=== PATIENT | female | born 1950 | race Caucasian/White ===

== ENCOUNTER 2018-08-08 17:13 | Observation (INO) ==
--- NOTE | 2018-08-08 17:37 | ERNOTE ---
Medical Problem HPI - Narrative Date of Service: 08/08/18 - General Chief Complaint: General Assessment Time Seen by Provider: 08/08/18 17:27 Source: patient, RN notes reviewed Exam Limitations: no limitations - Immun/Allergies/Home Medications Immunizations: IMMUNIZATION HX Immunizations Up to Date No History of Influenza Vaccine No Hx Pneumococcal Vaccination No Allergies/Adverse Reactions: Allergies amoxicillin Allergy (Verified 08/08/18 17:25) Home Medications: HOME MEDICATIONS NK 08/08/18 [Last Taken Unknown] - History of Present History Narrative: Baylee is a 68 year old female who presents to the ED from home with her for anemia. She has been feeling increasingly more tired since she retired 6 months ago. She had not seen a doctor since 2013. She established with a new PCP earlier today. Her had been urging her to do this since she had not been feeling well. She was notified later this afternoon that she needed to go to the ER because her hemoglobin was only 6.2. She reports becoming fatigued with minimal exertion, and that her legs start hurting from walking up her stairs. She denies any chest pain. She denies any obvious bleeding. She has never had a colonoscopy. She is a pack and a half per day smoker. Timing: getting worse Review of Systems - Review of Systems Constitutional: Present: fatigue. Absent: recent illness, fever, chills EYE: Present: blurred vision - intermittent. Absent: eye pain ENT: Present: no symptoms reported Respiratory: Present: shortness of breath - mild, exertional. Absent: cough Cardiology: Absent: chest pain, palpitations, syncope Gastrointestinal/Abdominal: Absent: diarrhea, constipation, abdominal pain, eating less, drinking less Genitourinary: Absent: dysuria, hematuria Musculoskeletal: Present: muscle pain. Absent: joint pain, joint swelling Skin: Absent: rash, lesions, lumps Neurological: Absent: headache, dizziness/light-headedness Endocrine: Present: no symptoms reported Hematologic/Lymphatic: Absent: easy bruising, easy bleeding Psych: Present: no symptoms reported Medical History (Last Reviewed 08/08/18 @ 18:35 by Denisse Mcclellan NP) Hx of wisdom tooth extraction (Acute) No pertinent past medical history lymph node removal cervical lymph node removed in the Surgical History: Surgical History (Last Updated 08/08/18 @ 18:54 by Vianca Andre RN) lymph node removal (Acute) cervical lymph node removed in the 70's Hx of wisdom tooth extraction (Acute) Family History: Family History (Last Reviewed 08/08/18 @ 18:35 by Denisse Mcclellan NP) Sister Bipolar 1 disorder Mother Fibromyalgia Social History: Preferred Language [place] Do you have any anabaptist or Yes: episcapalion cultural preference? Smoking Status Current every day smoker Have you smoked in the past 12 Yes months Do you dip or chew tobacco No Alcohol Use occasionally Drug Use none No Social History Section defined Physical Exam - Physical Exam General Appearance: Present: alert, no apparent distress, thin Head Exam: Present: normal inspection Eye Exam: Normal inspection: bilateral Neck: Present: normal inspection, nontender, supple, full range of motion Respiratory: Present: no respiratory distress, no accessory muscle use, lungs clear, decreased breath sounds - bilateral bases Cardiovascular/Chest: Present: no murmur, normal peripheral pulses, tachycardia Gastrointestinal/Abdominal: Present: normal bowel sounds, nontender, nondistended, soft Rectal Exam: Present: nontender, normal rectal tone, heme negative stool Extremity Exam: Present: normal inspection, normal range of motion, no edema Neurological Exam: Present: alert, oriented, normal mood/affect, no motor/sensory deficits Skin Exam: Present: warm/dry, pallor Progress - Results and Orders Patient's Lab Results:: I have reviewed the patient's lab results. - Vital Signs Patient's Vital Signs:: I have reviewed the patient's vital signs. Vital Signs: Vital Signs 08/08/18 17:14 Temperature 36.4 C Pulse Rate 110 H Respiratory Rate 14 Blood Pressure 183/98 H O2 Sat by Pulse Oximetry 100 - Progress/Reassessment Chief Complaint: General Assessment Progress:: Unchanged Plan - Plan Plan: The patient is severely anemic with a hemoglobin of 5.7 without any identifiable cause at the present time. Two units of blood have been ordered. Dr. Guaman was contacted and the patient will be admitted to observation. Departure Clinical Impression: Anemia Qualifiers: Anemia type: unspecified type Qualified Code(s): D64.9 - Anemia, unspecified - Departure Disposition: Still a patient Condition: Stable
[2018-08-08 17:59] LABS: Mean Cell Volume 61.4 fl (78-100); Mean Corpuscular Hemoglobin 16.7 pg (27-31); Mean Corpuscular Hgb Conc 27.1 g/dl (32-36); Neutrophil # 3.6 K/mm3 (1.3-6.0); Neutrophil % 55.7 % (42-75.0); Platelet Count 453 K/mm3 (150-450); Red Blood Count 3.42 M/mm3 (4.2-5.4); Red Cell Distribution Width 18.9 % (11.5-14.0); White Blood Count 6.4 K/mm3 (4.0-10.5)
[2018-08-08 18:03] LABS: Hemoglobin 5.7 gm/dL (12.5-16.0)
[2018-08-08 18:12] LABS: Prothrombin Time (Patient) 9.9 Seconds (9.0-11.0)
[2018-08-08 18:15] LABS: Albumin * 3.7 gm/dl (3.4-5.0); Anion Gap 16.8 mmol/L (6.8-13.8); BUN/Creatinine Ratio 19.2 (9.0-21.6); Bilirubin, Total 0.2 mg/dL (0.0-1.1); Ca. Corrected For Albumin 9.1 mg/dL (8.4-10.2); Calcium * 9.2 mg/dL (7.9-10.9); Carbon Dioxide 23.1 mmol/L (24-32.6); Potassium 3.9 mmol/L (3.4-4.6); Total Protein 7.5 gm/dL (6.2-8.2)
[2018-08-08 18:16] LABS: INR 0.99 INR (0.90-1.10); Partial Thrombolplastin Time 21.3 Seconds (24-32)
[2018-08-08 18:32] LABS: Urine Bilirubin Negative (NEGATIVE); Urine Blood Negative /ul (NEGATIVE); Urine Ketone Negative (NEGATIVE); Urine Nitrite Negative (NEGATIVE); Urine Protein Negative (NEGATIVE); Urine Urobilinogen Normal (NORMAL)
[2018-08-08 18:40] LABS: Urine Appearance Clear (CLEAR); Urine Bacteria TRACE; Urine Color Yellow; Urine RBC TRACE /hpf (0-5)
[2018-08-08] MEDS ORDERED: NICOTINE 21 MG PATC TD SCH (19:45)
--- NOTE | 2018-08-08 20:53 | HP ---
Chief Complaint - Chief Complaint Date of Service: 08/08/18 Time of Service: 20:41 Chief Complaint: anemia, weakness History of Present Illness: Patient with no past medical history established with a new physician today for having some complaints of generalized loss of energy. She had some shortness of breath with strenuous activity, and noticed some mild leg pain with activity. She had labs done today, and was called to come to the ER, and was found to have a hemoglobin of 5.7. She denies any acute symptoms. No signs of blood loss. She has never had a colonoscopy. She reports smoking a pack and a half a day for approximately 50 years. Does not currently take medications. Medical History (Last Updated 08/08/18 @ 18:35 by Nai Ng RN) No pertinent past medical history Surgical History: Surgical History (Last Updated 08/08/18 @ 18:54 by Vianca Andre RN) lymph node removal (Acute) cervical lymph node removed in the 's Hx of wisdom tooth extraction (Acute) Family History: Family History (Last Reviewed 08/08/18 @ 18:35 by Nai Ng RN) Sister Bipolar 1 disorder Mother Fibromyalgia Social History: Patient Lives/Resources With Spouse Utilized Occupation Retired Preferred Language Chinese Do you have any oriental orthodox or Yes cultural preference? Smoking Status Current every day smoker Have you smoked in the past 12 Yes months Do you dip or chew tobacco No Alcohol Use occasionally Drug Use none No Social History Section defined Review Of Systems (GEN) - Review of Systems Generalized/Overall Review: Present: Weakness, Malaise, Fatigue Respiratory: Absent: Shortness of Breath Cardiac: Absent: Chest Pain, Edema Abdominal: Absent: Vomiting Genitourinary: Present: No Symptoms Reported Skin: Present: No Symptoms Reported Immunizations: IMMUNIZATION HX Immunizations Up to Date No History of Influenza Vaccine No Hx Pneumococcal Vaccination No Allergies/Adverse Reactions: Allergies Allergy/AdvReac Type Severity Reaction Status Date / Time amoxicillin Allergy Verified 08/08/18 17:25 Home Medications: HOME MEDICATIONS NK 08/08/18 [Last Taken Unknown] Exam - Exam Vital Signs: Vital Signs - Last Taken Temp 36.7 C 08/08/18 20:04 Pulse 76 08/08/18 20:04 Resp 16 08/08/18 20:04 BP 174/89 H 08/08/18 20:04 Pulse Ox 99 08/08/18 20:04 Constitutional: Present: Alert, Oriented x3, Cooperative, No distress - appears chronically ill ENT Exam: Present: moist mucous membranes Respiratory: Present: normal breath sounds, no respiratory distress Cardiovascular/Chest: Present: regular rate, rhythm Abdomen: Present: Normal bowel sounds, soft, nontender Extremity: Absent: lower extremity edema Neurologic: Present: normal mood/affect Diagnostic Studies: Abnormal Lab Results 08/08/18 08/08/18 08/08/18 Range/Units 17:58 17:58 17:58 RBC 3.42 L (4.2-5.4) M/mm3 Hgb 5.7 L* (12.5-16.0) gm/dL Hct 21.0 L* (37.0-47.0) % MCV 61.4 L (78-100) fl MCH 16.7 L (27-31) pg MCHC 27.1 L (32-36) g/dl RDW 18.9 H (11.5-14.0) % Plt Count 453 H (150-450) K/mm3 Monocytes % 12.6 H (0.0-9) % Eosinophils % 8.0 H (0.0-3.0) % Basophils % 1.1 H (0.0-1.0) % Lymphocytes # 1.43 L (1.5-3.5) k/mm3 PTT ([place]) 21.3 L (24-32) Seconds Carbon Dioxide 23.1 L (24-32.6) mmol/L Anion Gap 16.8 H (6.8-13.8) mmol/L Est GFR (Non-Af Amer) 56 L (60-130) mL/min Random Glucose 121 H (70-110) mg/dL ALT 16 L (19-67) U/L Ur Leukocyte Esterase (NEGATIVE) /ul Urine WBC (0-5) /hpf Crossmatch 08/08/18 08/08/18 Range/Units 17:58 18:14 RBC (4.2-5.4) M/mm3 Hgb (12.5-16.0) gm/dL Hct (37.0-47.0) % MCV (78-100) fl MCH (27-31) pg MCHC (32-36) g/dl RDW (11.5-14.0) % Plt Count (150-450) K/mm3 Monocytes % (0.0-9) % Eosinophils % (0.0-3.0) % Basophils % (0.0-1.0) % Lymphocytes # (1.5-3.5) k/mm3 PTT ([place]) (24-32) Seconds Carbon Dioxide (24-32.6) mmol/L Anion Gap (6.8-13.8) mmol/L Est GFR (Non-Af Amer) (60-130) mL/min Random Glucose (70-110) mg/dL ALT (19-67) U/L Ur Leukocyte Esterase 25 H (NEGATIVE) /ul Urine WBC 5-10 H (0-5) /hpf Crossmatch See Detail Laboratory Results WBC 6.4 K/mm3 (4.0-10.5) 08/08/18 17:58 RBC 3.42 M/mm3 (4.2-5.4) L 08/08/18 17:58 Hgb 5.7 gm/dL (12.5-16.0) L* 08/08/18 17:58 Hct 21.0 % (37.0-47.0) L* 08/08/18 17:58 MCV 61.4 fl (78-100) L 08/08/18 17:58 MCH 16.7 pg (27-31) L 08/08/18 17:58 MCHC 27.1 g/dl (32-36) L 08/08/18 17:58 RDW 18.9 % (11.5-14.0) H 08/08/18 17:58 Plt Count 453 K/mm3 (150-450) H 08/08/18 17:58 MPV 9.0 fl (8-12.5) 08/08/18 17:58 Immature Gran % (Auto) 0.30 % (0.001-0.429) 08/08/18 17:58 Immature Gran # (Auto) 0.02 K/mm3 (0.000-0.0310) 08/08/18 17:58 Neutrophils % 55.7 % (42-75.0) 08/08/18 17:58 Lymphocytes % 22.3 % (20-51) 08/08/18 17:58 Monocytes % 12.6 % (0.0-9) H 08/08/18 17:58 Eosinophils % 8.0 % (0.0-3.0) H 08/08/18 17:58 Basophils % 1.1 % (0.0-1.0) H 08/08/18 17:58 Nucleated RBC % 0.0 k/mm3 (0-1) 08/08/18 17:58 Neutrophils # 3.6 K/mm3 (1.3-6.0) 08/08/18 17:58 Lymphocytes # 1.43 k/mm3 (1.5-3.5) L 08/08/18 17:58 Monocytes # 0.8 k/mm3 (0.0-1.0) 08/08/18 17:58 Eosinophils # 0.5 k/mm3 (0.0-0.7) 08/08/18 17:58 Absolute Basophils 0.1 k/mm3 (0.0-0.1) 08/08/18 17:58 PT 9.9 Seconds (9.0-11.0) 08/08/18 17:58 INR (Anticoag Therapy) 0.99 INR (0.90-1.10) 08/08/18 17:58 PTT ([place]) 21.3 Seconds (24-32) L 08/08/18 17:58 Sodium 139 mmol/L (132-142) 08/08/18 17:58 Plasma Sodium 139 mmol/L (130-142) 08/08/18 17:58 Potassium 3.9 mmol/L (3.4-4.6) 08/08/18 17:58 Chloride 103 mmol/L (97-106) 08/08/18 17:58 Carbon Dioxide 23.1 mmol/L (24-32.6) L 08/08/18 17:58 Anion Gap 16.8 mmol/L (6.8-13.8) H 08/08/18 17:58 BUN 20 mg/dL (3-23) 08/08/18 17:58 Creatinine 1.04 mg/dL (0.4-1.4) 08/08/18 17:58 Est GFR (Non-Af Amer) 56 mL/min (60-130) L 08/08/18 17:58 BUN/Creatinine Ratio 19.2 (9.0-21.6) 08/08/18 17:58 Random Glucose 121 mg/dL (70-110) H 08/08/18 17:58 Calcium 9.2 mg/dL (7.9-10.9) 08/08/18 17:58 Calcium Adj for Albumin 9.1 mg/dL (8.4-10.2) 08/08/18 17:58 Total Bilirubin 0.2 mg/dL (0.0-1.1) 08/08/18 17:58 AST 21 U/L (0-48) 08/08/18 17:58 ALT 16 U/L (19-67) L 08/08/18 17:58 Alkaline Phosphatase 79 U/L (50-170) 08/08/18 17:58 Total Protein 7.5 gm/dL (6.2-8.2) 08/08/18 17:58 Albumin 3.7 gm/dl (3.4-5.0) 08/08/18 17:58 Urine Color Yellow 08/08/18 18:14 Urine Appearance Clear (CLEAR) 08/08/18 18:14 Urine pH 6.0 pH (5.0-7.0) 08/08/18 18:14 Ur Specific [place] 1.020 SP.GR. (1.005-1.010) 08/08/18 18:14 Urine Protein Negative mg/dL (NEGATIVE) 08/08/18 18:14 Urine Glucose (UA) Negative mg/dL (NEGATIVE) 08/08/18 18:14 Urine Ketones Negative mg/dL (NEGATIVE) 08/08/18 18:14 Urine Blood Negative /ul (NEGATIVE) 08/08/18 18:14 Urine Nitrate Negative (NEGATIVE) 08/08/18 18:14 Urine Bilirubin Negative mg/dl (NEGATIVE) 08/08/18 18:14 Urine Urobilinogen Normal EU/dl (NORMAL) 08/08/18 18:14 Ur Leukocyte Esterase 25 /ul (NEGATIVE) H 08/08/18 18:14 Urine RBC Trace /hpf (0-5) 08/08/18 18:14 Urine WBC 5-10 /hpf (0-5) H 08/08/18 18:14 Ur Epithelial Cells Trace /hpf (0-5) 08/08/18 18:14 Urine Bacteria Trace (NONE) 08/08/18 18:14 Urine Culture Comments Culture to follow 08/08/18 18:14 Stool Occult Blood Negative 08/08/18 18:12 Blood Type AB Positive 08/08/18 17:58 Antibody Screen Negative 08/08/18 17:58 Crossmatch See Detail 08/08/18 17:58 Assessment/Plan - Assessment/Plan (1) Anemia Assessment: She is currently receiving 1 of 2 units of PRBCs. Will check H&H 1 hour after the second unit. She has no obvious signs of blood loss. Her anemia is microcytic, indicating possible iron deficiency. Is currently asymptomatic. Blood pressure is actually increased, and her heart rate is in the 70s. Occult blood negative. Recommend colonoscopy and iron studies after discharge. Problem: Acute Qualifiers: Anemia type: unspecified type Qualified Code(s): D64.9 - Anemia, unspecified
[2018-08-09 03:26] LABS: Hemoglobin 8.6 gm/dL (12.5-16.0)
--- NOTE | 2018-08-09 09:35 | DS ---
(1) Anemia Problem: Acute Qualifiers: Anemia type: unspecified type Qualified Code(s): D64.9 - Anemia, unspecified Description of Stay: Patient with no significant past medical history saw her physician on the day of admission for having some complaints of generalized loss of energy. She had some shortness of breath with strenuous activity, and noticed some mild leg pain. She had labs done, and was called to come to the ER, and was found to have a hemoglobin of 5.7. MCV low at 61.4, indicating microcytic anemia. She denies any acute symptoms. No signs of blood loss. She has never had a colonoscopy. She reports smoking a pack and a half a day for approximately 50 years. Does not currently take medications. She does report having had anemia requiring transfusions when she was approximately 12 years old. Her BP was somewhat high, heart rate and respiratory rates were normal. She received two units PRBCs, and her hemoglobin improved to 8.6. She continued to have no active signs of bleeding. She felt comfortable going home on the day of discharge, and will follow up with her PCP next week. Iron deficiency anemia may be the source, and will order iron studies with DC orders to be done next week. Procedures Performed: none Results and Findings: Pending Mircobiology Results 08/08/18 18:14 Urine,Voided Urine Culture - Preliminary No Growth Lab Pending Results 08/08/18 17:58: WBC 6.4, RBC 3.42 L, Hgb 5.7 L*, Hct 21.0 L*, MCV 61.4 L, MCH 16.7 L, MCHC 27.1 L, RDW 18.9 H, Plt Count 453 H, MPV 9.0, Immature Gran % (Auto) 0.30, Immature Gran # (Auto) 0.02, Neutrophils % 55.7, Lymphocytes % 22.3, Monocytes % 12.6 H, Eosinophils % 8.0 H, Basophils % 1.1 H, Nucleated RBC % 0.0, Neutrophils # 3.6, Lymphocytes # 1.43 L, Monocytes # 0.8, Eosinophils # 0.5, Absolute Basophils 0.1 08/08/18 17:58: PT 9.9, INR (Anticoag Therapy) 0.99, PTT ([place]) 21.3 L 08/08/18 17:58: Sodium 139, Plasma Sodium 139, Potassium 3.9, Chloride 103, Carbon Dioxide 23.1 L, Anion Gap 16.8 H, BUN 20, Creatinine 1.04, Est GFR (Non- Af Amer) 56 L, BUN/Creatinine Ratio 19.2, Random Glucose 121 H, Calcium 9.2, Calcium Adj for Albumin 9.1, Total Bilirubin 0.2, AST 21, ALT 16 L, Alkaline Phosphatase 79, Total Protein 7.5, Albumin 3.7 08/08/18 17:58: Blood Type AB Positive, Antibody Screen Negative, Crossmatch See Detail 08/08/18 18:12: Stool Occult Blood Negative 08/08/18 18:14: Urine Color Yellow, Urine Appearance Clear, Urine pH 6.0, Ur Specific [place] 1.020, Urine Protein Negative, Urine Glucose (UA) Negative, Urine Ketones Negative, Urine Blood Negative, Urine Nitrate Negative, Urine Bilirubin Negative, Urine Urobilinogen Normal, Ur Leukocyte Esterase 25 H, Urine RBC Trace, Urine WBC 5-10 H, Ur Epithelial Cells Trace, Urine Bacteria Trace, Urine Culture Comments Culture to follow 08/09/18 03:20: Hgb 8.6 L, Hct 29.0 L Discharge Location: Home Disposition: Home self-care Condition: Stable Discharge Activity: Activity as tolerated Discharge Diet: General/regular food Referrals: Jen Mayes APRN [Primary Care Provider] - Additional Patient Instructions (free text): -Please make TCM appointment unless shelter discharge. Thank you! Ghazala @ [phone]. Complete Home Medications List: Complete Home Medication List: NK 08/08/18 Amb Orders for Discharge: CBC Time Frame: 1 Week, Location: Laboratory Iron & Iron Binding Capacity Time Frame: 1 Week, Location: Laboratory
[2018-08-09 09:40] VITALS: BP 144/67
== END 2018-08-09 10:05 | disposition home or self-care (01) ==
LOC: ER 17:13 → SCU 17:13
PROVIDERS: ADMIT Family Medicine; ATTEND Family Medicine
DX: D64.9 Anemia, unspecified
CPT/HCPCS: 36415; 36430; 80053; 81001; 82272; 85014; 85018; 85025; 85610; 85730; 86850; 86900; 87086; 99285; G0378; P9016